=== PATIENT | female | born 2000 | race Caucasian/White ===

== ENCOUNTER 2021-03-13 11:42 | Emergency (ER) | payer BC ==
[~2021-03-13] VITALS: Ht 162.6 cm; Wt 49.9 kg
[2021-03-13 11:58] VITALS: BP 109/49
[2021-03-13] MEDS ORDERED: CEPHALEXIN500 MG PO (12:20)
== END 2021-03-13 12:32 | disposition home or self-care (01) ==
LOC: ER 11:42
DX: L73.8 Other specified follicular disorders (principal); F12.90 Cannabis use, unspecified, uncomplicated